=== PATIENT | female | born 1980 | race Caucasian/White ===

== ENCOUNTER 2019-03-01 00:53 | Observation (INO) ==
[2019-03-01] MEDS ORDERED: Ringers Solution, Lactated 1,000 ML ONE (04:53)
[2019-03-01] MEDS: Ringers Solution, Lactated 1,000 ML IVC SCH ×2 (04:57→10:03)
--- NOTE | 2019-03-01 05:10 | Internal Med History&Physical ---
Date of Encounter: 03/01/19 Time of Encounter: 05:09 Internal Medicine - H&P: HPI Chief complaint: rash Admitted From: Home Plans for Post Hospital Care: Home History of present illness: Rae Medina is a 38-year-old morbidly obese woman who developed an urticarial reaction on Tuesday and has since been to the emergency room twice with these complaints prescribed oral steroids and antihistamines but has continued to have symptoms. She says that initially it would subside but they would recur again quickly and is worse that the rash has spread more areas of her body localizing them to her thighs and upper extremities. She denies contact with any exogenous substances that would have triggered this saying that it started as a small blockage in the morning on Tuesday before she went to work and over the course of the day continue to spread, highly pruriginous and uncomfortable. She reports anaphylaxis to latex and an allergy to amoxicillin but says she has taken Augmentin multiple times and recently completed a course 1 day before the symptoms started. Being that the rash did not start during the treatment course, she did not believe it was associated. Tonight she went to the ER because she felt a tingle in her throat prompting concern and was transferred here. At the time of my assessment she reports feeling well and she has no difficulty breathing, chest pain, fever or chills. She denies sensation of throat swelling at this time. Vitals: Reviewed General: Obese white woman sitting up in bed in no acute distress. Skin: Multiple areas of nonblanching erythematous urticarial lesions on thighs and arms. HEENT: Moist mucous membranes. No conjunctivae pallor. Neck: No lymphadenopathy. No JVD. No carotid bruits. No palpable thyroid. Chest: Normal thoracic expansion. Normal breath sounds. Clear to auscultation. Heart: Normal S1 & S2; rhythmic. No rubs or murmurs. Abdomen: Non-distended, soft and non-tender to palpation. No peritoneal reaction. Extremities: No clubbing, cyanosis or edema. No calf tenderness. Normal distal pulses. Neurological: Awake, alert and oriented to person, place and time. No focal deficits. Psych: Affect appropriate. Assessment/Plan 1. Allergic urticarial: Concern that this may be a result of her underlying allergy to amoxicillin. While there are cases of growing out of an allergy stating her tolerance of Augmentin, it can recur and cause delayed reactions. This agent is the only seemingly new entity preceding the precipitation of her signs. She denies introduction of any of substances or exogenous contact. Given her heavy weight, her steroid dosing may have been under dosed and therefore not as effective leading to the refractory symptoms. Will place her on parenteral steroids for today to at least achieve 1mg/kg dosing in combination with dual antihistamine therapy and assess her response to this. 2. Obesity: Counseled and educated on therapeutic lifestyle changes for weight loss as it will be of benefit in controlling comorbidities. [employer] evaluation advised. 3. Hypertension: Resume home medications as reconciled. 4. Depression: On paroxetine. 5. DVT prophylaxis: SubQ heparin ordered. Past Med Surg Social Fam HX - Past Medical History Medical history: asthma, hypertension, other Additional medical history: pe Psychiatric history: depression - Past Surgical History Surgical History: hysterectomy Additional surgical history: POST OP PE - Social History Smoking Status: Former smoker Smokeless Tobacco Status: No Alcohol use: rarely Drug use: none Internal Medicine - H&P: Meds Escitalopram [Lexapro] 20 mg PO DAILY 08/21/15 [History] Lisinopril [Zestril] 20 mg PO DAILY 08/21/15 [History] Montelukast [Singulair] 10 mg PO DAILY 07/21/17 [History] Propranolol 1 tab PO BID 07/21/17 [History] amLODIPine 1 tab PO DAILY 07/21/17 [History] Albuterol Sulfate [Ventolin Hfa] 18 gm IH BID 05/04/18 [History] Breo Ellipta 200-25 Mcg INH 1 puff IN DAILY 02/27/19 [History] DiphenhydraMINE [Benadryl] 25 - 50 mg PO Q6HR #30 capsule 02/27/19 [Rx] Famotidine [Pepcid] 20 mg PO BID #30 tablet 02/27/19 [Rx] PredniSONE [Deltasone] 60 mg PO DAILY #15 tablet 02/27/19 [Rx] Allergy/AdvReac Type Severity Reaction Status Date / Time Amoxicillin Allergy Rash Verified 05/01/17 15:08 latex Allergy Anaphylaxis Verified 05/01/17 15:08 All Systems PM: A 10-system review of systems was performed and is negative for pertinent findings except as documented above in the HPI. Family history reviewed and found non-contributory. - Constitutional Vitals: Temp Pulse Resp BP Pulse Ox 98.2 F 109 12 170/88 95 03/01/19 03:44 03/01/19 03:44 03/01/19 03:44 03/01/19 03:44 03/01/19 03:44 Exam: . - Time Spent With Patient Total time spent is greater than 50% in coordination of care (as documented) at patient's floor/unit and/or counseling patient: Greater than 35 minutes
[2019-03-01] MEDS: *HR* Heparin 5,000 UNIT/ML VIAL SQ SCH ×2 (06:10→17:27)
[2019-03-01] MEDS: Famotidine 20 MG/2 ML VIAL IVP SCH ×2 (06:10→17:10)
[2019-03-01] MEDS: Acetaminophen 325 MG TABLET PO PRN ×2 (08:39→20:20)
[2019-03-01] MEDS: methylPREDNISolone 125 MG/2 ML VIAL IVP SCH ×3 (08:41→23:23)
[2019-03-01] MEDS: Lisinopril 20 MG TABLET PO SCH (08:42)
--- NOTE | 2019-03-01 11:42 | Event Note ---
Date of Encounter: 03/01/19 Time of Encounter: 11:40 Patient was seen and examined. She was admitted by one of my colleagues overnight for what seems like an allergic reaction to amoxicillin. She just finished 10 days of it for ear infection. The following day she started having swelling and hives at multiple parts of her body. This has worsened over the last few days and she has had multiple visits to the ER and was put on oral prednisone and antihistamine. She came in and got admitted overnight for worsening of those. When I examined the patient I do not see any signs of blistering or skin sloughing off. No mucosal lesions. Continue current treatment with schedule IV steroids and antihistamines. If we start seeing any worsening of these lesions with blistering and skin sloughing off we would have to be transferred to a tertiary center with a burn unit. Patient is hemodynamically stable. She is on room air.
[2019-03-01] MEDS: amLODIPine 5 MG TABLET PO SCH (12:34)
[2019-03-01] MEDS: hydroCHLOROthiazide 25 MG TABLET PO SCH (12:34)
[2019-03-02] MEDS: *HR* Heparin 5,000 UNIT/ML VIAL SQ SCH (05:56)
[2019-03-02] MEDS: Famotidine 20 MG/2 ML VIAL IVP SCH (05:58)
[2019-03-02 06:01] LABS: Basophils % 0.1 %; Hematocrit 36.8 % (35.3-44.9); Hemoglobin 11.3 g/dL (11.5-15.4); Immature Granulocytes % 1.2 % (0-4); Lymphocytes # 1.9 K/mcL (0.6-4.6); Lymphocytes % 15.1 %; Mean Corpuscular HGB Conc 30.7 g/dL (31.6-35.5); Mean Corpuscular Hemoglobin 26.5 pg (28.0-33.3); Mean Corpuscular Volume 86.2 fL (83.0-100.0); Mean Platelet Volume 10.2 fL (9.4-12.4); Monocytes # 0.3 K/mcL (0.0-1.3); Monocytes % 2.2 %; Neutrophils # 10.5 K/mcL (1.6-8.9); Platelet Count 377 K/mcL (140-400); Red Blood Count 4.27 M/mcL (3.82-4.97); Red Cell Distribution Width 15.2 % (11.5-14.5); Segmented Neutrophils % 81.4 %; White Blood Count 12.8 K/mcL (4.3-11.1)
[2019-03-02 06:03] LABS: BUN/Creatinine Ratio 27 (6-26); Blood Urea Nitrogen 20 mg/dL (6-20); Calcium 8.8 mg/dL (8.6-10.3); Carbon Dioxide 25 mEq/L (23-29); Chloride 101 mEq/L (98-107); Glucose 149 mg/dL (70-105); Magnesium 2.4 mg/dL (1.6-2.6); Osmolality,Calculated 301 (280-300); Potassium 4.3 mEq/L (3.5-5.1); Sodium 143 mEq/L (136-145); eGFR For African Americans > 60 (> 60); eGFR For Non-African Americans > 60 (> 60)
[2019-03-02 07:04] VITALS: BP 138/76
[2019-03-02] MEDS ORDERED: (Fluticasone/Vilanterol [Breo Ellipta 200-25 Mcg Inh]) IH SCH (09:00)
[2019-03-02] MEDS: methylPREDNISolone 125 MG/2 ML VIAL IVP SCH (09:02)
[2019-03-02] MEDS: hydroCHLOROthiazide 25 MG TABLET PO SCH (09:02)
[2019-03-02] MEDS: Lisinopril 20 MG TABLET PO SCH (09:02)
[2019-03-02] MEDS: amLODIPine 5 MG TABLET PO SCH (09:02)
--- NOTE | 2019-03-02 10:48 | Discharge Summary ---
Date of Encounter: 03/02/19 Time of Encounter: 10:44 - Discharge Diagnosis (1) Allergic reaction Priority: Primary Status: Acute Qualifiers: Encounter type: initial encounter Qualified Code(s): T78.40XA - Allergy, unspecified, initial encounter (2) Urticaria Priority: Primary Status: Acute (3) Morbid obesity with BMI of 50.0-59.9, adult Priority: Secondary Status: Acute Hospital course: Ms. Medina is a 38 year old female morbidly obese woman who developed an urticarial reaction a day after finishing 10 days of amoxicillin for an ear infection. She was seen in the ED twice and the 3rd time was admitted. She had hives at multiple parts of the body. She had ithching. She had lips swelling but no airway compromise. She was admitted after the 3rd day and put on IV steroids, IV pepcid, and IV benadryl. Her hives and swelling all resolved. She was discharged to finish the prednisone she had been prescribed previously through the ED. Was discharged 03/02/19. - Time Spent with Patient Total time spent providing and/or coordinating discharge services: Time spent: Greater than 30 minutes - Discharge Medications Prescriptions: Continued Ferrous Sulfate 325 mg PO BID hydroCHLOROthiazide [Hydrochlorothiazide] 25 mg PO DAILY Omeprazole [PriLOSEC] 40 mg PO DAILY Escitalopram [Lexapro] 20 mg PO DAILY Lisinopril [Zestril] 20 mg PO DAILY Propranolol [Inderal] 20 tab PO BID Montelukast [Singulair] 10 mg PO DAILY amLODIPine [Norvasc] 5 mg PO DAILY Albuterol Sulfate [Ventolin Hfa] 18 gm IH BID PRN PRN Reason: Shortness Of Breath Fluticasone/Vilanterol [Breo Ellipta 200-25 Mcg INH] 1 puff IN DAILY PredniSONE [Deltasone] 60 mg PO DAILY #15 tablet Famotidine [Pepcid] 20 mg PO BID #30 tablet Changed DiphenhydraMINE [Benadryl] 25 - 50 mg PO Q6HR PRN #30 capsule PRN Reason: Itching Home Medications: Escitalopram [Lexapro] 20 mg PO DAILY 08/21/15 [History] Lisinopril [Zestril] 20 mg PO DAILY 08/21/15 [History] Montelukast [Singulair] 10 mg PO DAILY 07/21/17 [History] Propranolol [Inderal] 20 tab PO BID 07/21/17 [History] amLODIPine [Norvasc] 5 mg PO DAILY 07/21/17 [History] Albuterol Sulfate [Ventolin Hfa] 18 gm IH BID PRN 05/04/18 [History] Famotidine [Pepcid] 20 mg PO BID #30 tablet 02/27/19 [Rx] Fluticasone/Vilanterol [Breo Ellipta 200-25 Mcg INH] 1 puff IN DAILY 02/27/19 [History] PredniSONE [Deltasone] 60 mg PO DAILY #15 tablet 02/27/19 [Rx] Ferrous Sulfate 325 mg PO BID 03/01/19 [History] Omeprazole [PriLOSEC] 40 mg PO DAILY 03/01/19 [History] hydroCHLOROthiazide [Hydrochlorothiazide] 25 mg PO DAILY 03/01/19 [History] DiphenhydraMINE [Benadryl] 25 - 50 mg PO Q6HR PRN #30 capsule 03/02/19 [Rx] Allergies/Adverse Reactions: Allergy/AdvReac Type Severity Reaction Status Date / Time Amoxicillin Allergy Rash Verified 03/01/19 13:13 latex Allergy Anaphylaxis Verified 03/01/19 13:13 Date of admission: 03/01/19 03:41 Primary care physician: PCP NONE - Constitutional Vitals: Temp Pulse Resp BP Pulse Ox 97.9 F 65 12 138/76 96 03/02/19 07:01 03/02/19 07:01 03/02/19 07:01 03/02/19 07:01 03/02/19 07:01 Exam: GEN: NAD CVS: RRR. S1, S2, No m/r/g RESP: CTAB ABD: Soft, NT, ND, +BS EXT: No edema. 2+ DP. No rashes NEURO: Nonfocal - Patient Status Disposition: Home, Self-Care Condition: Fair Overall status at discharge: patient is progressing back to baseline - Discharge Instructions Follow Up With: NONE,PCP [Primary Care Provider] - - Diet and Activity Activity: increase activity as tolerated Diet: regular diet
== END 2019-03-02 12:06 | disposition home or self-care (01) ==
LOC: 2NENU → SUATTDRO 03:41
PROVIDERS: ADMIT Internal Medicine Nephrology; ATTEND Internal Medicine